=== PATIENT | male | born 1940 | race Caucasian/White ===

== ENCOUNTER → 2018-06-04 | Day surgery (SDC) | payer MEDICARE ==
[2018-06-03 13:13] LABS: BASOPHILS # (AUTO) 0.1 (0.0-0.1); BASOPHILS % 0.7 % (0.0-1.0); EOSINOPHILS # (AUTO) 0.2 (0.0-0.4); HEMATOCRIT 44.5 % (38.2-49.6); HEMOGLOBIN 15.1 g/dL (14.0-18.0); LYMPHOCYTES # (AUTO) 2.4 (1.0-3.2); LYMPHOCYTES % 27.8 % (18.0-39.1); MEAN CORPUSCULAR HEMOGLOBIN 32.3 pg (28-32); MEAN CORPUSCULAR HGB CONC 33.9 g/dL (31-35); MEAN CORPUSCULAR VOLUME 95.3 fL (81-99); MONOCYTES # (AUTO) 0.8 (0.2-0.8); MONOCYTES % 8.6 % (4.4-11.3); NEUTROPHILS # (AUTO) 5.3 (2.1-6.9); NEUTROPHILS % 60.7 % (38.7-80.0); PLATELET COUNT 206 x10e3/uL (140-360); RED BLOOD COUNT 4.67 x10e6/uL (4.3-5.7); RED CELL DISTRIBUTION WIDTH 13.2 % (11.7-14.4)
[2018-06-03 13:44] LABS: ALANINE AMINOTRANSFERASE 17 IU/L (0-55); ALBUMIN 4.5 g/dL (3.5-5.0); ALBUMIN/GLOBULIN RATIO 1.3 (0.8-2.0); ALKALINE PHOSPHATASE 56 IU/L (40-150); ANION GAP 12.2 mmol/L (8-16); BLOOD UREA NITROGEN 16 mg/dL (7-26); BUN/CREATININE RATIO 17 (6-25); CARBON DIOXIDE 28 mmol/L (22-29); CHLORIDE 104 mmol/L (98-107); CHOLESTEROL 149 MD/DL (0-199); CREATININE, SERUM 0.92 mg/dL (0.72-1.25); EST GLOMERULAR FILTRATION RATE > 60 ML/MIN (60-); GLUCOSE 100 mg/dL (74-118); HDL CHOLESTEROL 50 MG/DL (40-60); LDL CHOLESTEROL 84 MG/DL (60-130); POTASSIUM 4.2 mmol/L (3.5-5.1); SODIUM 140 mmol/L (136-145); TRIGLYCERIDES 76 MG/DL (0-149)
[2018-06-04] VITALS (18 sets, daily range): BP systolic 97–158; BP diastolic 61–112
[~2018-06-04] VITALS: Ht 188 cm; Wt 91.6 kg
[~2018-06-04] MED LIST: ALPRAZOLAM 0.5 MG TAB ONE; AMLODIPINE BESY10 MG PO; ASPIRIN 325 MG TAB ONE; CARVEDILOL12.5 MG PO; CLOPIDOGREL75 MG PO; CRESTOR10 MG PO; DIAZEPAM10 MG PO; DIPHENHYDRAMINE HCL 25 MG CAP ONE; EPTIFIBATIDE 10 ML ONE; FENTANYL CITRATE/PF 100MCG/2 ML INJ ONE; FLUTICASONE PRO16 GM; FUROSEMIDE40 MG PO; HEPARIN SOD/SOD CHLORIDE 2,000 ML ONE; IOPAMIDOL 370 MG/ML 200 ML INFUS..BTL INJ ONE; ISOSORBIDE MONO20 MG PO; LIDOCAINE HCL 2% LOCAL 20 ML VIAL ONE; LISINOPRIL10 MG PO; MIDAZOLAM HCL 2 MG/2 ML VIAL ONE; MORPHINE SULFATE 2 MG/ML SYR ONE; NITROSTAT0.4 MG SL; POTASSIUM CHLO10 ME1 PO; SODIUM CHLORIDE 0.9% 1000ML 1,000 ML ONE; SYMBICORT 16010.2 GM INH; TICAGRELOR 90 MG TABLET ONE
--- NOTE | 2018-06-04 12:27 | Operative Report ---
DATE OF PROCEDURE: June 04, 2018 INDICATIONS: Coronary artery disease with abnormal stress test. PROCEDURES PERFORMED 1. Left heart catheterization, selective coronary angiography. 2. Selective cannulation of 1 arterial and 1 venous bypass conduits. 3. Atherectomy and stent placement to the left main and circumflex coronary arteries. 4. Deployment of right groin Mynx closure device. COMPLICATIONS: None. RECOMMENDATIONS: Dual antiplatelet therapy for life. Access was obtained in the right femoral artery. A 6-[place] sheath was placed. Diagnostic coronary angiogram revealed 80% distal left main stenosis and occluded left anterior descending artery. Stenosis in the left main was extending to the circumflex, heavily calcified, type-C lesion. The obtuse marginal branches had mild disease. Right coronary artery stent was patent. Distal to the stent 80% stenosis. Left internal mammary artery bypass to left anterior descending artery was widely patent. Saphenous vein bypass to right posterior descending artery was widely patent. A decision was made to intervene on the left main and circumflex coronary arteries. The patient received 10,000 units of intravenous heparin as well as Integrilin bolus. The left main was cannulated using a 6-[place] XB guiding catheter. A short ViperWire was advanced across the lesion for support. Orbital atherectomy using a 1.25-mm CSI orbital atherectomy was performed. Balloon angioplasty with a 3-mm balloon following which a single 3.5 x 20-mm stent was deployed extending from the left main into the circumflex. Left anterior descending artery ostium remained patent. Excellent end result, less than 10% residual stenosis. No complications. Right groin repaired using Mynx closure device. Patient discharged home the same day. Job#: [id number]
== END | disposition home or self-care (01) ==
LOC: CATH LAB 07:17
PROVIDERS: ATTEND Internal Medicine Interventional Cardiology
DX: I25.708 Atherosclerosis of coronary artery bypass graft(s), unspecified, with other forms of angina pectoris (principal); R94.39 Abnormal result of other cardiovascular function study; I10 Essential (primary) hypertension; R09.89 Other specified symptoms and signs involving the circulatory and respiratory systems; E78.00 Pure hypercholesterolemia, unspecified; Z01.812 Encounter for preprocedural laboratory examination; Z79.02 Long term (current) use of antithrombotics/antiplatelets; Z95.1 Presence of aortocoronary bypass graft; Z95.5 Presence of coronary angioplasty implant and graft
CPT/HCPCS: 93455; C9602; 36415; 80053; 80061; 85025; 92924; 92928; C1769; C1874; J1327; J2001; J2250; J2270; J7030; Q9967